=== PATIENT | male | born 2000 | race American Indian/Alaskan Native ===

== ENCOUNTER 2020-11-25 20:27 | Emergency (ER) | payer OTHER ==
[~2020-11-25] VITALS: Ht 175.3 cm; Wt 78.6 kg
[2020-11-25 20:28] VITALS: BP 154/82
[2020-11-25] MEDS ORDERED: BACI500O21 TOP (21:21)
--- NOTE | 2020-11-25 21:52 | REPVR ---
PROCEDURE INFORMATION: Exam: XR Right Finger(s) Exam date and time: 11/25/2020 9:39 PM Age: 20 years old Clinical indication: Pain; Finger(s); Right; Additional info: Index - trauma TECHNIQUE: Imaging protocol: XR Right fingers. Views: Minimum 2 views. COMPARISON: No relevant prior studies available. FINDINGS: Bones/joints: Normal. No fracture. Soft tissues: Normal. IMPRESSION: Negative right index finger. Electronically signed by: Maximus Culver On 11/25/2020 21:52:12 PM
[2020-11-25] MEDS ORDERED: NEOSPORIN OINT 0.9 GM PKT TOP ONE (22:15)
== END 2020-11-25 22:17 | disposition home or self-care (01) ==
LOC: M ED 20:27
DX: S61.210A Laceration without foreign body of right index finger without damage to nail, initial encounter (principal); W23.1XXA Caught, crushed, jammed, or pinched between stationary objects, initial encounter; Y92.9 Unspecified place or not applicable; Y93.89 Activity, other specified; Y99.1 Military activity